=== PATIENT | female | born 1955 | race Caucasian/White ===

== ENCOUNTER 2018-04-03 22:25 | Emergency (ER) | payer OTHER ==
[2018-04-03] MEDS: ONDANSETRON 4 MG INJ IV (22:47)
[2018-04-03] MEDS: SOD CHLORIDE 0.9% 1,000 ML IV (22:48)
[2018-04-03] MEDS: morphine 2 MG INJ IV (22:48)
[2018-04-03 22:52] LABS: ADD MAN DIFF? NO
[2018-04-03 22:53] LABS: WHITE BLOOD COUNT 6.9 10^3/ul (4.8-10.8)
[2018-04-03 22:53] LABS: BASOPHILS % 0.3 % (0.0-2.0); EOSINOPHILS # 0.1 10^3/ul (0.0-0.5); EOSINOPHILS % 0.7 % (0.0-7.0); HEMATOCRIT 35.1 % (37.0-47.0); HEMOGLOBIN 11.8 g/dl (12.0-16.0); LYMPHOCYTES # 2.8 10^3/ul (0.8-2.9); LYMPHOCYTES % 39.9 % (15.0-51.0); MEAN CORPUSCULAR HEMOGLOBIN 29.7 pg (29.0-33.0); MEAN CORPUSCULAR HGB CONC 33.6 g/dl (32.0-37.0); MEAN CORPUSCULAR VOLUME 88.4 fl (82.0-101.0); MEAN PLATELET VOLUME 10.4 fl (7.4-10.4); MONOCYTE # 0.5 10^3/ul (0.3-0.9); MONOCYTES % 7.8 % (0.0-11.0); NEUTROPHIL # 3.5 10^3/ul (1.6-7.5); PLATELET COUNT 281 10^3/UL (140-415); RED BLOOD COUNT 3.97 10^6/ul (4.20-5.40); RED CELL DISTRIBUTION WIDTH 12.1 % (11.5-14.5)
[2018-04-03 23:09] LABS: ANION GAP 15 (8-16); BLOOD UREA NITROGEN 20 mg/dl (7-20); CALCIUM 9.7 mg/dl (8.4-10.2); CARBON DIOXIDE 25 mmol/L (21-31); CHLORIDE 107 mmol/L (97-110); CREATININE 0.53 mg/dl (0.44-1.00); GLUCOSE 139 mg/dl (70-220); POTASSIUM 3.5 mmol/L (3.5-5.1); SODIUM 143 mmol/L (135-144)
[2018-04-03] MEDS: SOD CHLORIDE 0.9% 100 ML (23:22)
[2018-04-03] MEDS: IOHEXOL 300MG/ML 150 ML BTL (23:22)
== END 2018-04-04 00:24 | disposition home or self-care (01) ==
LOC: E/R 04-04 00:24
DX: S30.1XXA Contusion of abdominal wall, initial encounter (principal); S90.01XA Contusion of right ankle, initial encounter; R91.1 Solitary pulmonary nodule; V89.2XXA Person injured in unspecified motor-vehicle accident, traffic, initial encounter
CPT/HCPCS: 71260; 73610-RT; 74177; 80048; 85025; 96374; 96375; 99285-25